=== PATIENT | male | born 1955 | race Caucasian/White ===

== ENCOUNTER 2022-03-31 10:54 | Inpatient (IN) | payer BC ==
[2022-03-31] MEDS ORDERED: Ondansetron ODT 4 MG TAB PO PRN (12:00)
[2022-03-31] MEDS ORDERED: Senokot S 8.6-50 MG TAB PO PRN (12:00)
[2022-03-31] MEDS ORDERED: Bisacodyl 10 MG SUPP PR PRN (12:00)
[2022-03-31] MEDS ORDERED: HYDROcodone/Acetaminophen 7.5/325 mg Tablet PO PRN (12:03)
[2022-03-31] MEDS ORDERED: Dextrose 50% Abboject 50 ML SYRINGE SLOW IVP PRN (12:12)
[2022-03-31] MEDS ORDERED: HumaLOG 300 UNITS/3 ML VIAL SC PRN ×2 (12:12)
[2022-03-31] MEDS ORDERED: Mometasone 100 MCG/Formoterol 5 MCG 120 PUFF INHALER INH SCH (18:30)
[2022-03-31] MEDS: guaiFENesin/DM ER PO SCH (21:16)
[2022-03-31] MEDS: Lantus 1000 UNITS/10 ML VIAL SC SCH (21:16)
[2022-03-31] MEDS: Mometasone/Formoterol 200/5 60 PUFF INH SCH (21:17)
[2022-03-31] MEDS: Zolpidem Tartrate 5 MG TAB PO PRN (21:25)
[2022-03-31] MEDS ORDERED: Ondansetron ODT 4 MG TAB SL PRN (22:15)
[2022-04-01 06:21] LABS: ALT (SGPT) 170 U/L (8-55); AST (SGOT) 123 U/L (5-34); Albumin 2.4 g/dL (3.4-4.8); Alkaline Phosphatase 419 U/L (40-110); Anion Gap 14 mmol/L (10-20); BUN (Urea Nitrogen) 8 mg/dL (8.4-25.7); Bilirubin, Total 12.6 mg/dL (0.2-1.2); Calc. Creatinine Clearance 172 mL/min (70-130); Calcium 7.9 mg/dL (7.8-10.44); Carbon Dioxide 24 mmol/L (23-31); Chloride 94 mmol/L (98-107); Estimated GFR 112; Globulin 1.9 g/dL (2.4-3.5); Glucose 102 mg/dL (80-115); Potassium 3.5 mmol/L (3.5-5.1); Protein, Total 4.3 g/dL (5.8-8.1); Sodium 128 mmol/L (136-145)
[2022-04-01 07:02] LABS: #Basophils 0.2 thou/uL (0.0-0.2); #Lymphocytes 2.5 thou/uL (1.20-3.40); #Monocytes 0.6 thou/uL (0.11-0.59); #Neutrophils 11.9 thou/uL (1.40-6.50); %Basophils 1.2 % (0.0-1.0); %Eosinophils 0.2 % (0.0-10.0); %Lymphocytes 16.3 % (21.0-51.0); %Neutrophils 78.3 % (42.0-75.0); Hemoglobin 8.8 g/dL (14.0-18.0); Mean Corpuscular HGB CONC 32.5 g/dL (32.0-36.0); Mean Corpuscular Hemoglobin 29.6 pg (27.0-31.0); Mean Platelet Volume 13.1 fL (7.4-10.4); Platelet Count 45 thou/uL (130-400); RBC Distribution Width 20.2 % (11.5-14.5); Red Blood Cell (RBC) Count 2.97 mill/uL (4.70-6.10)
[2022-04-01 07:08] LABS: White Blood Cell (WBC) Count 15.2 thou/uL (4.8-10.8)
[2022-04-01] MEDS: guaiFENesin/DM ER PO SCH ×2 (08:24→20:48)
[2022-04-01] MEDS: Mometasone/Formoterol 200/5 60 PUFF INH SCH ×2 (08:24→20:50)
[2022-04-01] MEDS: Zolpidem Tartrate 5 MG TAB PO PRN (20:49)
[2022-04-01] MEDS: Lantus 1000 UNITS/10 ML VIAL SC SCH (20:58)
[2022-04-02] MEDS: guaiFENesin/DM ER PO SCH ×2 (10:00→20:19)
[2022-04-02] MEDS: Mometasone/Formoterol 200/5 60 PUFF INH SCH ×2 (10:00→20:19)
[2022-04-02] MEDS ORDERED: Senokot S 8.6-50 MG TAB PO PRN (11:00)
[2022-04-02] MEDS: Lantus 1000 UNITS/10 ML VIAL SC SCH (20:18)
[2022-04-02] MEDS: Zolpidem Tartrate 5 MG TAB PO PRN (20:22)
[2022-04-03 05:36] LABS: ALT (SGPT) 149 U/L (8-55); AST (SGOT) 104 U/L (5-34); Albumin 2.4 g/dL (3.4-4.8); Alkaline Phosphatase 439 U/L (40-110); Anion Gap 14 mmol/L (10-20); BUN (Urea Nitrogen) 6 mg/dL (8.4-25.7); Bilirubin, Total 11.9 mg/dL (0.2-1.2); Calc. Creatinine Clearance 183 mL/min (70-130); Calcium 7.9 mg/dL (7.8-10.44); Carbon Dioxide 23 mmol/L (23-31); Chloride 91 mmol/L (98-107); Estimated GFR 114; Globulin 2.1 g/dL (2.4-3.5); Glucose 94 mg/dL (80-115); Potassium 3.5 mmol/L (3.5-5.1); Protein, Total 4.5 g/dL (5.8-8.1); Sodium 124 mmol/L (136-145)
[2022-04-03 05:54] LABS: Anisocytosis SLIGHT = 6-15 cells (100X) (0-5/hpf); Band 13 % (5-11); Hemoglobin 8.9 g/dL (14.0-18.0); Lymphocytes 5 % (21-51); MDiff Complete? YES; Mean Corpuscular HGB CONC 31.9 g/dL (32.0-36.0); Mean Corpuscular Hemoglobin 29.5 pg (27.0-31.0); Mean Corpuscular Volume 92.6 fL (78.0-98.0); Mean Platelet Volume 14.6 fL (7.4-10.4); Monocytes 6 % (0-10); Neutrophil 76 % (42-75); Platelet Count 48 thou/uL (130-400); Polychromasia SLIGHT = 2-3 cells (100X) (0-2/hpf); RBC Distribution Width 21.3 % (11.5-14.5); Target Cells SLIGHT = 2-5 cells (100X) (0-1/hpf)
[2022-04-03 05:55] LABS: White Blood Cell (WBC) Count 23.1 thou/uL (4.8-10.8)
[2022-04-03 05:56] LABS: Platelet Morphology Comment Appears Decreased
[2022-04-03] MEDS: Mometasone/Formoterol 200/5 60 PUFF INH SCH ×2 (08:38→21:10)
[2022-04-03] MEDS: guaiFENesin/DM ER PO SCH ×2 (08:38→21:09)
[2022-04-03] MEDS: Lantus 1000 UNITS/10 ML VIAL SC SCH (21:09)
[2022-04-03] MEDS: Zolpidem Tartrate 5 MG TAB PO PRN (21:16)
[2022-04-04 05:37] LABS: Anion Gap 15 mmol/L (10-20); BUN (Urea Nitrogen) 7 mg/dL (8.4-25.7); Calc. Creatinine Clearance 190 mL/min (70-130); Calcium 7.9 mg/dL (7.8-10.44); Carbon Dioxide 22 mmol/L (23-31); Chloride 90 mmol/L (98-107); Estimated GFR 115; Glucose 100 mg/dL (80-115); Potassium 3.5 mmol/L (3.5-5.1); Sodium 123 mmol/L (136-145)
[2022-04-04 06:02] VITALS: BMI 27.6
[2022-04-04] MEDS ORDERED: Sodium Chloride 0.9% 1,000 ML IV SCH (08:45)
[2022-04-04] MEDS: guaiFENesin/DM ER PO SCH (09:26)
[2022-04-04] MEDS: Mometasone/Formoterol 200/5 60 PUFF INH SCH (09:27)
[2022-04-04 16:29] LABS: Anion Gap 14 mmol/L (10-20); BUN (Urea Nitrogen) 7 mg/dL (8.4-25.7); Calc. Creatinine Clearance 174 mL/min (70-130); Carbon Dioxide 23 mmol/L (23-31); Chloride 89 mmol/L (98-107); Estimated GFR 114; Glucose 163 mg/dL (80-115); Potassium 3.7 mmol/L (3.5-5.1); Sodium 122 mmol/L (136-145)
[2022-04-04 19:09] VITALS: BP 109/61; TEMP 97.6
== END 2022-04-04 20:35 | disposition short-term general hospital (02) | DRG 948 ==
LOC: NAV ACUTE 15:28
PROVIDERS: ADMIT Family Medicine; ATTEND Family Medicine
DX: R53.81 Other malaise (principal); C34.90 Malignant neoplasm of unspecified part of unspecified bronchus or lung; C78.7 Secondary malignant neoplasm of liver and intrahepatic bile duct; E87.1 Hypo-osmolality and hyponatremia; D62 Acute posthemorrhagic anemia; R53.1 Weakness; E11.9 Type 2 diabetes mellitus without complications; J44.9 Chronic obstructive pulmonary disease, unspecified; K21.9 Gastro-esophageal reflux disease without esophagitis; E78.5 Hyperlipidemia, unspecified; F17.210 Nicotine dependence, cigarettes, uncomplicated; K25.9 Gastric ulcer, unspecified as acute or chronic, without hemorrhage or perforation; D63.0 Anemia in neoplastic disease; D69.6 Thrombocytopenia, unspecified; Z90.89 Acquired absence of other organs; Z90.49 Acquired absence of other specified parts of digestive tract; Z88.8 Allergy status to other drugs, medicaments and biological substances; Z88.2 Allergy status to sulfonamides; Z98.890 Other specified postprocedural states; Z79.899 Other long term (current) drug therapy; Z79.51 Long term (current) use of inhaled steroids; Z83.6 Family history of other diseases of the respiratory system; Z80.8 Family history of malignant neoplasm of other organs or systems; Z20.822 Contact with and (suspected) exposure to COVID-19
CPT/HCPCS: 36415; 36416; 80048; 80053; 83930; 83935; 84300; 85025; 87811; 94640; 94664; J1815; J7050; J7620